=== PATIENT | male | born 1975 | race Caucasian/White ===

== ENCOUNTER 2023-12-17 09:56 | Emergency (ER) | payer OTHER, SELFPAY ==
[2023-12-17 10:17] VITALS: BP 158/98; PULSE 94; RESP 22; TEMP 36.6; O2SAT 99; BMI 25.8
--- NOTE | 2023-12-17 11:01 | US_ITS ---
Patient: MARY SÁNCHEZ Facility:?[facility] R[facility] Patient ID:?[id number] Site Patient ID:?[id number]. Site :?[id number] Study:?US-Testicle Bilateral -12/17/2023 11:57:54 AM Ordering Physician:?ER PROVIDER Final Report: INDICATION: Testicular swelling, not otherwise described. COMPARISON: None. TECHNIQUE: Grayscale and spectral Doppler ultrasound of the scrotum. FINDINGS: Right Testicle: No normal-appearing right testicle is demonstrated. Instead, a heterogeneous solid mass replaces the right testicle. This is considered to represent testicular carcinoma (most likely seminoma) until proven otherwise. This mass measures 6.7 x 5 cm in transverse and AP dimensions, respectively. Color and Spectral Doppler blood flow: Color Doppler and intralesional systemic arterial low resistance spectral waveforms are demonstrated within the lesion. Right Epididymis: Unseen. Varicocele: Absent. Hydrocele: Present. Left Testicle: Size: 3.4 x 2.3 x 4.6cm. Echotexture: Testicular microlithiasis is noted. Color and Spectral Doppler blood flow: Color Doppler and arterial spectral Doppler intratesticular blood flow is documented. Left Epididymis: Unremarkable. Varicocele: Absent. Hydrocele: Absent. Soft tissues: Unremarkable. IMPRESSION: 1. The right testicle is replaced by a heterogeneous solid mass which is considered to represent testicular carcinoma until proven otherwise. Urology referral is recommended. 2. Left testicular microlithiasis. 3. Large right hydrocele. Dictated by Konstantin Kuo MD @ 12/17/2023 12:10:47 PM ----- ADDENDUM ----- ADDENDUM: Report received by Dr. Cody at 12:12 p.m. PROFESSOR OF MEDICINE. Dictated by Konstantin Kuo MD @ Dec 17 2023 12:23PM Signed by:?Konstantin Kuo MD @12/17/2023 12:10:47 PM (Electronic Signature)
[2023-12-17 11:36] LABS: Appearance Urine Clear (Clear); Bilirubin Urine Negative (Negative); Blood Urine 2+ (Negative); Color Urine Yellow (Yellow); Glucose Urine Negative (Negative); Ketones Urine Negative (Negative); Leukocyte Esterase Urine Negative (Negative); Nitrite Urine Negative (Negative); Protein Urine Negative (Negative); Urobilinogen Urine 0.2 (0.2-1.0)
[2023-12-17 11:58] LABS: RBC Urine 0-2 (0-2)
--- NOTE | 2023-12-17 12:03 | ED.GENADULT ---
HPI - General Adult General Date Seen: 12/17/23 Chief complaint: Urogenital Problems, Male Stated complaint: right testicle swelling,lower back pain Time Seen by Provider: 12/17/23 12:00 History of Present Illness HPI narrative: 48-year-old male with a past medical history of tobacco use, presenting to the ER today because he noticed that his right testicle is swollen to the size of a ?tennis ball?. He is also having pain in his back. He told his triage nurse that He he noticed that his testicle swollen about 3 weeks ago. His back pain began about 1 week ago, last Saturday. However, he tells me that he probably 1st noticed that his right testicle was swollen about 3 months ago. It has been progressing for the past week or 2. It has actually become painful overnight last night. It is a throbbing achiness. No left testicular swelling or pain. No rectal pain. He endorses urinary frequency and small bone urine but no dysuria, no urgency. No hematuria. Normal odorous urine. He also has a history of chronic low back pain and it has been flaring for the past week or so with pain in his lower lumbar spine into both of his buttocks. He is not having any anterior abdominal pain. No fevers. No chills. No nausea or vomiting. He has a history of rheumatoid arthritis. He is on prednisone, methotrexate, Rinvoq. He is on prophylactic Bactrim. He has a vitreo retinal surgeon in [facility]. He apparently saw him last week and had ?some lab work that was off? but does not know what labs were abnormal. He is apparently due to have some follow-up. It sounds like he did not mention his swollen testicle to his vitreo retinal surgeon, so as far as I can tell no workup was done for . His testicle. He also says he takes varying doses of prednisone every day. He says his head vitreo retinal surgeon is someone [facility], Dr. Muniz. He apparently had of checkup with her last week and some his blood tests were abnormal. He is not sure which ones. Use postop follow-up and get extra labs. We were able to fax the patient's rheumatology clinic and they sent us a copy of some labs from 12/10/2023 CRP 0.58 Albumin 4.1 AST 26 ALT 25 Creatinine 0 point GFR 94.9 ESR 7 Platelet counth 621h Hemoglobin 13.2 Neutrophil count 11,840 Basophil count 0 Eosinophil count 160 Lymphocyte count 2240 Metamyelocyte count 160 Monocyte 1280 Myelocyte count 320 He also has history of olecranon bursitis in his right elbow for years that has never healed. Previous cultures grew 2 strains of staff, he says. He says he mostly comes to for healthcare here to [place]. However we do not have any visits for him in our medical record since June 2019. It looks like he was hospitalized in June 2019 for left knee cellulitis. According to discharge summary from 2019- While in the hospital he was treated for antibiotics. He had chest nodules and was supposed to have had a follow-up chest x-ray in 3 months. He had ventricular septal hypertrophy and needed to have a follow-up with Cardiology to workup for hypertrophic cardiomyopathy. He also has a dilated aortic sinus with a max diameter 3.9 cm. He also had a new heart murmur with suspicion for a LV outflow tract and myxomatous mitral valve with regurg. Echocardiogram showed EF of 74%. Normal LV size. Moderately increased LV wall thickness. 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 Aortic sinus is dilated with maximum diameter 3.9 cm. Related Data Previous Rx's Medication Instructions Recorded hydrocodone 5 mg-acetaminophen 325 1 tab PO Q6H PRN pain #10 tabs 12/17/23 mg tablet Allergies Allergy/AdvReac Type Severity Reaction Status Date / Time No Known Drug Allergies Allergy Verified 12/17/23 13:39 PFSH PFS Social History Smoking Status: Current every day smoker What tobacco products do you use: cigarettes Smoking packs per day: 20 Smoking cigarettes per day: 400.0 Do you use any of these nicotine containing products: None Second hand tobacco smoke exposure: Yes How often do you have a drink containing alcohol: monthly or less How many standard drinks containing alcohol do you have on a typical day: 1 or 2 How often do you have six or more drinks on one occasion: Never AUDIT-C Alcohol total score: 1 Non-prescribed substance use: marijuana (any form) Non-prescribed substance use details: smokes marijuana daily. service: No Exam Narrative: Exam Narrative: Constitutional: Appears well-developed and well-nourished. Alert. Awake somewhat drowsy. Overall he is conversant but seems to be slurring his speech. I encountered him lying on his left side on his hospital bed. He rolled over while we were talking and fell out of the bed. He landed on his hands and knees. He suffered a small scrape to his left elbow. No other injuries. He was able to get himself up. He declined any assistance. HENT: Head: Atraumatic. Nose: Nose normal. Mouth/Throat: Oral mucosa is clear and moist. no trismus. Pharynx normal. Tonsils symmetric. No tonsillar enlargement, erythema, or exudate. Eyes: Conjunctivae normal. EOM normal. Pupils equal, round, and reactive to light. No scleral icterus. Neck: Normal range of motion. Neck supple. No tracheal deviation present. Cardiovascular: Normal rate, regular rhythm. No gallop. No friction rub. No murmur heard. Symmetric radial artery pulses Pulmonary/Chest: Effort normal. No stridor. No respiratory distress. No wheezes. No rales. No rhonchi . No tenderness. Abdominal: Soft. Bowel sounds normal. No distension. No mass. No tenderness. No rebound. No guarding. : Normal external penis. Circumcised. Penis normal. No inguinal masses. No inguinal adenopathy. Left testicle normal. The patient has marked swelling and enlargement of the right testicle/right hemiscrotum. Very minimal erythema of the skin. No definite warmth or induration. No palpable fluctuance or abscess. Perineum normal. Right testicle palpates enlarged but is not really tender. Musculoskeletal: Endorses low back pain across the lower lumbar spine and upper pelvis. No bony crepitus. No step-off. No rash. RUE: Normal range of motion. No tenderness. No deformity LUE: Normal range of motion. No tenderness. No deformity RLE: Normal range of motion. No edema. No tenderness. No deformity LLE: Normal range of motion. No edema. No tenderness. No deformity Lymph: No inguinal adenopathy. Neurological: Alert and oriented to person, place, and time. Normal strength. CN II-VII intact. No sensory deficit. GCS eye subscore is 4. GCS verbal subscore is 5. GCS motor subscore is 6. Normal coordination Skin: Skin is warm and dry. No rash noted. No pallor. Normal capillary refill. Psychiatric: Normal mood. Normal affect. Const: Vital Signs, click to edit/add: Vital Signs - 24 hr 12/17/23 10:17 12/17/23 12:40 12/17/23 13:44 Temperature 97.8 F Pulse Rate [Pulse Oximeter] 94 80 83 Respiratory Rate 22 20 20 Blood Pressure [Ri ght Upper Arm] 158/98 H 134/95 H 151/115 H Pulse Oximetry 99 96 96 Oxygen Delivery Me thod Room Air Room Air Room Air Course Course ED Course: Recheck-updated patient about ultrasound and CT findings. He is sitting up in the chair next to his bed. He is more conversant now in speech is clear. Unclear why he was drowsy and slurred initially. Concern is for possible substance intoxication, which is cleared well he is here in the ER. At this point mental status is normal Reevaluation(s) Reevaluation #1: Discussed with the patient has rheumatology clinic. They will fax labs Reevaluation #2: Discussed with [place] [facility]. We were able to get this patient the next available appointment on December 24 at 4:[address] Howell in the [facility]. Reevaluation #3: Updated patient is rheumatology clinic about findings. they request that we fax results from today's ER visit-patient agrees. Fax provided Vital Signs Vital signs: Initial Vital Signs Temperature 97.8 F 12/17/23 10:17 Temperature Source Temporal Artery Scan 12/17/23 10:17 Pulse Rate 94 12/17/23 10:17 Pulse Rhythm Regular 12/17/23 10:17 Respiratory Rate 22 12/17/23 10:17 Blood Pressure 158/98 H 12/17/23 10:17 Blood Pressure Mean 118 H 12/17/23 10:17 Blood Pressure Position Sitting 12/17/23 10:17 Pulse Oximetry 99 12/17/23 10:17 Oxygen Delivery Method Room Air 12/17/23 10:17 Vital Signs Temperature 97.8 F 12/17/23 10:17 Pulse Rate 94 12/17/23 10:17 Respiratory Rate 22 12/17/23 10:17 Blood Pressure 158/98 H 12/17/23 10:17 Pulse Oximetry 99 12/17/23 10:17 Oxygen Delivery Method Room Air 12/17/23 10:17 Temperature 97.8 F 12/17/23 10:17 Pulse Rate 83 12/17/23 13:44 Respiratory Rate 20 12/17/23 13:44 Blood Pressure 151/115 H 12/17/23 13:44 Pulse Oximetry 96 12/17/23 13:44 Oxygen Delivery Method Room Air 12/17/23 13:44 Medical Decision Making MDM Narrative Medical decision making narrative: 48-year-old gentleman with a history of rheumatoid arthritis on prednisone, methotrexate and or revoke presenting to the ER today with a couple of months of right testicular swelling now with right testicular pain today. Differential for the testicular pain was broad including torsion, epididymitis, orchitis, UTI, scrotal cellulitis, Dawna's gangrene, kidney stone, among others. Exam revealed a swollen but nontender right testicle. Scrotal ultrasound confirms a present blood flow but a sign that the right testicle is been split replaced by a mass. This is very concerning for testicular cancer. Serum hCG is negative. Serum LDH is elevated at 460. Were not able to measures serum alpha fetoprotein here in the ER in [place]. With his low back pain also consider kidney stone, lumbar spine pathology. We obtained CT scan abdomen pelvis to evaluate. We also included CT chest to look for possible signs of metastasis from possible testicular tumor. Fortunately CT chest 7 pelvis shows no acute masses or lymphadenopathy. No sign of kidney stone, acute lumbar spine or pelvic compression fracture. He request analgesia. Prescription for pain meds provided With his low back pain suspect this is probably musculoskeletal. No evidence for lumbar radiculopathy or cauda equina syndrome based on neuro exam at this time We were able to go make referral to Urology for further evaluation and treatment of his testicular tumor. We were able to get him the next available appointment with [facility]. This will be with Dr. Howell in the [place] office on SaturdayDecember 24 at 4:00 p.m.. Patient's vitreo retinal surgeon is updated. He will still need to follow-up for his other outpatient labs, as ordered by his processor helper Discussed the patient's diagnosis in detail with him. Questions were answered to his satisfaction. He is eager for discharge, but agrees to wait so we can schedule is urology follow-up for him and provide him with digital copies of his imaging. Unfortunately, due to technical problems, There was a delay in getting his digital copy of his CT and ultrasound. He did not want to wait for at so left without copies of his imaging Lab Data Labs: Lab Results 12/17/23 12/17/23 12/17/23 Range/Units 11:10 12:38 13:25 WBC 12.80 H (4.50-11.00) K/uL RBC 4.14 L (4.30-5.90) m/uL Hgb 12.0 L (13.5-17.5) gm/dL Hct 38.5 (37.0-53.0) % MCV 93 (80-100) fL MCH 29 (26-34) pg MCHC 31 L (32-36) gm/dL RDW Coeff of Loren 19.1 H (11.5-15.5) % Plt Count 492 H (140-440) K/uL Neut % (Auto) 76.8 H (42.0-72.0) % Lymph % (Auto) 14.8 L (20-44) % [place] % (Auto) 6.6 (0.0-11.0) % Eos % (Auto) 1.0 (0.0-7.0) % Baso % (Auto) 0.3 (0.0-3.0) % Neut # (Auto) 9.80 H (1.7-7.0) K/uL Lymph # (Auto) 1.90 (0.90-2.90) K/uL [place] # (Auto) 0.80 (0.00-0.90) K/UL Eos # (Auto) 0.10 (0.00-0.50) K/uL Baso # (Auto) 0.00 (0.00-0.30) K/uL Abs Immat Gran (auto) 0.10 (0.00-0.30) K/uL Imm/Tot Granulo (auto) 0.5 % Sodium 138 (135-149) mmol/L Potassium 3.2 L (3.6-5.1) mmol/L Chloride 108 (96-114) mmol/L Carbon Dioxide 28 (20-32) mmol/L Anion Gap 2 L (7-15) mEq/L BUN 14 (7-30) mg/dL Creatinine 0.4 L (0.5-1.5) mg/dL Estimated Creat Clear 242.50 Estimated GFR 133 ml/min Glucose 86 (60-115) mg/dL Calcium 8.5 (8.4-10.6) mg/dL Total Bilirubin 0.2 (0.1-1.5) mg/dL AST 26 (12-35) U/L ALT 20 (4-50) U/L Alkaline Phosphatase 114 (40-150) U/L Lactate Dehydrogenase 464 H (120-246) U/L Total Protein 6.4 (6.0-8.3) g/dL Albumin 3.8 (3.3-5.0) g/dL HCG, Quant < 2.39 (0-5.00) mIU/mL Urine Color Yellow (Yellow) Urine Appearance Clear (Clear) Urine pH 7.0 (5.0-8.5) Ur Specific [place] 1.020 (1.000-1.030) Urine Protein Negative (Negative) Urine Glucose (UA) Negative (Negative) Urine Ketones Negative (Negative) Urine Blood 2+ A (Negative) Urine Nitrite Negative (Negative) Urine Bilirubin Negative (Negative) Urine Urobilinogen 0.2 (0.2-1.0) Ur Leukocyte Esterase Negative (Negative) Urine RBC 0-2 (0-2) Urine WBC 2-5 (0-5) Ur Squamous Epith Cells None (None-Few) Urine Bacteria None (None) Imaging Data US Scrotum: Attestation: I have reviewed the pertinent imaging results. Radiologist's impression: IMPRESSION: 1. The right testicle is replaced by a heterogeneous solid mass which is considered to represent testicular carcinoma until proven otherwise. Urology referral is recommended. 2. Left testicular microlithiasis. 3. Large right hydrocele. CT Chest/Ab/Pelvis: Attestation: I have reviewed the pertinent imaging results. Radiologist's impression: IMPRESSION: 1. Right testicular enlargement with large right hydrocele. Please see testicular ultrasound from earlier today for additional comments. 2. No enlarged lymph nodes with small subcentimeter retroperitoneal lymph nodes noted. 3. Old bilateral rib fractures with old appearing L2 compression fracture. Prominent degenerative disc disease lumbar spine. 4. Moderate colonic diverticulosis. 5. Old granulomatous disease with indeterminate pulmonary nodule in the right upper lobe measuring 3 millimeters. 6. Panlobular emphysema. Discharge Plan Discharge Clinical Impression: Testicular neoplasm Patient Disposition: Home, Self-Care Condition: Stable Instructions: Testicular Cancer (DC) Additional Instructions: As we discussed, please come back to the ER right away if you have any problems especially worsening pain, high fever, worsening weakness, numbness or paralysis of your legs, or any other problems. We have been able to schedule a follow-up appointment for you. You have an appointment with [place] [facility] SaturdayDecember 24 at 3:[address] Howell [facility] [address], [place], [address] [address] Please bring copies of your lab work, digital copies of your ultrasound and CT with you to your appointment. Please follow-up with your vitreo retinal surgeon within 1-2 weeks to follow-up on your lab tests. Prescriptions: New hydrocodone-acetaminophen 5-325 mg tablet 1 tab PO Q6H PRN (Reason: pain) Qty: 10 0RF Follow Up/Referrals: Provider,Not a Local [Primary Care Provider] - Stand Alone Forms: [email or web address] Info Instructions
--- NOTE | 2023-12-17 12:38 | CT_ITS ---
Patient: MARY SÁNCHEZ Facility:?[facility] RIS Patient ID:?[id number] Site Patient ID:?[id number]. Site :?[id number] Study:?CT-Chest/Abd/Pelvis 93CC ISOVUE 370-12/17/2023 1:29:24 PM Ordering Physician:?DR. JUÁREZ Final Report: INDICATION: Cough, back pain, nodules and testicular mass. TECHNIQUE: CT chest, abdomen and pelvis acquired with 93 cc Isovue 370 intravenous contrast. COMPARISON: None. FINDINGS: CHEST: Cardiovascular structures: Mild atherosclerotic calcification. No thoracic aortic aneurysm. No pericardial effusion. Mediastinum and kate: Calcified left hilar lymph nodes. Lungs and pleura: No pleural effusion or pneumothorax. Calcified granulomata within the left lung. Mild panlobular emphysema. Indeterminate pulmonary nodule right upper lobe measuring 3 millimeters (3, 44). Chest wall and axilla: No mass or adenopathy. Bones: Old right 3rd and 4th rib fractures. Old left 3rd through 11th rib fractures. ABDOMEN AND PELVIS: Liver: Calcifications within the liver consistent with old granulomatous disease. Gallbladder and bile ducts: Unremarkable. Pancreas: Unremarkable. Spleen: Calcification in the spleen consistent with old granulomatous disease. Adrenal glands: Unremarkable. Kidneys: Density in the collecting systems of the lower pole of the kidneys which can represent early contrast enhancement versus nonobstructing stones. GI tract: No dilated loops of large or small intestine with a moderate to large amount of stool within the colon. Moderate colonic diverticulosis. Normal appendix. Vascular structures: Atherosclerosis without abdominal aortic aneurysm. Lymph nodes: Subcentimeter retroperitoneal lymph nodes. Miscellaneous: Unremarkable. No free air or significant free fluid. Pelvic Organs: Bladder unremarkable. Prominent enlargement of the right testicle with large right hydrocele. Bones: Diffuse degenerative disc disease lumbar spine with rightward subluxation of L3 on 4. Old appearing compression fracture L2. IMPRESSION: 1. Right testicular enlargement with large right hydrocele. Please see testicular ultrasound from earlier today for additional comments. 2. No enlarged lymph nodes with small subcentimeter retroperitoneal lymph nodes noted. 3. Old bilateral rib fractures with old appearing L2 compression fracture. Prominent degenerative disc disease lumbar spine. 4. Moderate colonic diverticulosis. 5. Old granulomatous disease with indeterminate pulmonary nodule in the right upper lobe measuring 3 millimeters. 6. Panlobular emphysema. Please note that all CT scans at this facility use dose modulation, iterative reconstruction, and/or weight-based dosing when appropriate to reduce radiation dose to as low as reasonably achievable. Dictated by Magan Calzada MD @ 12/17/2023 1:52:28 PM Signed by:?Magan Calzada MD @12/17/2023 1:52:28 PM (Electronic Signature)
[2023-12-17 12:40] VITALS: BP 134/95; PULSE 80; RESP 20; O2SAT 96
[2023-12-17 13:07] LABS: Basophils Percent Auto 0.3 % (0.0-3.0); Hematocrit 38.5 % (37.0-53.0); Immature Granulocytes Pct Auto 0.5 %; Lymphocytes Percent Auto 14.8 % (20-44); Mean Corpuscular HGB Conc 31 gm/dL (32-36); Mean Corpuscular Hemoglobin 29 pg (26-34); Mean Corpuscular Volume 93 fL (80-100); Monocytes Percent Auto 6.6 % (0.0-11.0); Neutrophils Percent Auto 76.8 % (42.0-72.0); Platelet Count* 492 K/uL (140-440); RDW Coefficient of Variation % 19.1 % (11.5-15.5); Red Blood Count 4.14 m/uL (4.30-5.90)
[2023-12-17 13:24] LABS: Albumin* 3.8 g/dL (3.3-5.0); Chloride* 108 mmol/L (96-114)
[2023-12-17 13:25] LABS: Potassium* 3.2 mmol/L (3.6-5.1); Sodium* 138 mmol/L (135-149)
[2023-12-17 13:27] LABS: Alkaline Phosphatase* 114 U/L (40-150); Anion Gap 2 mEq/L (7-15); Aspartate Amino Transferase* 26 U/L (12-35); Bilirubin Total* 0.2 mg/dL (0.1-1.5); Carbon Dioxide* 28 mmol/L (20-32); Creatinine* 0.4 mg/dL (0.5-1.5); Estimated Glomerular Filt Rate 133 ml/min; Total Protein* 6.4 g/dL (6.0-8.3)
[2023-12-17 13:28] LABS: Alanine Aminotransferase* 20 U/L (4-50); Blood Urea Nitrogen* 14 mg/dL (7-30); Calcium* 8.5 mg/dL (8.4-10.6); Glucose* 86 mg/dL (60-115); Lactate Dehydrogenase* 464 U/L (120-246)
[2023-12-17 13:33] LABS: Slide Review Reflex No
[2023-12-17 13:44] VITALS: BP 151/115; PULSE 83; RESP 20; O2SAT 96
[2023-12-17 13:53] LABS: HCG Quantitative* < 2.39 mIU/mL (0-5.00)
== END 2023-12-17 15:39 | disposition home or self-care (01) ==
PROVIDERS: Family Medicine; Emergency Provider Emergency Medicine
DX: D40.11 Neoplasm of uncertain behavior of right testis (principal); R10.2 Pelvic and perineal pain
CPT/HCPCS: 36415; 71260; 74177; 76870; 80053; 81001; 82105; 83615; 84702; 85025; 93976; 99284; Q9967

== ENCOUNTER 2024-06-09 08:38 | Outpatient (CLI) | payer OTHER, SELFPAY ==
--- OUTSIDE RECORDS SUMMARY | 2024-06-09 08:41 | XMS_ITS | Continuity of Care Document ---
Author Organization [facility] Address [address] [place] [address] Phone Care Team Providers Care Silver Cleaner Name Role Phone Carmen Ballard DNP Unavailable Unavailable Medications Medication Instructions Dosage Effective Dates (start - stop) Status Comments methotrexate sodium 2.5 mg tablet take 1 tablet by oral route every week 2.5 MG - Active prednisone 5 mg tablet take 1 tablet by oral route every day 5 MG - Active Rinvoq 15 mg tablet,extended release take 1 tablet by oral route every day 15 MG - Active BACTRIM (unknown strength) take 2 tablet by oral route every 12 hours Not Available - Active Procedures Procedure Date OFFICE/OUTPATIENT VISIT, [facility] Advance Directives Directive Yes / No Effective Date File Name No Information Encounters Encounter Description Practice Location Reason(s) For Visit Diagnoses Date Provider Providers Copied on Encounter OFFICE/OUTPA TIENT VISIT, [facility], [address] [place], [id number] , [place] tel:[phone] [facility] Back pain (chief complaint) Chronic pain syndromeSpondylo sis without myelopathy or radiculopathy, lumbar regionSpondyloli sthesis, cervical regionRheumatoid arthritis 3 Nellie Morales. [address], [place], [id number] , [place]. tel:[phone] Referring Provider: Yisel Antoine, [facility] [address], [place], [address]. tel:[phone] Family History Family Member Type Diagnosis Age At Onset No Information Payers Payer name Insurance type Covered green party ID Atif waggoner(s) Medicare MB [id number] [facility] [id number] Social History Type Description Quantity Date Captured Comments Alcohol Use Details 2-3 drinks monthly Caffeine Use Details Unknown Tobacco Use Status Heavy cigarette smok er (20-39 cigs/day) Smoking Status Heavy tobacco smoker Smoking Tobacco Use Details Cigarette: No Details Available Cigarette: 1 Packs per day Sex Male Vital Signs Date / Time: Height Weight BMI Pulse Rate Blood Pressure Temperature Respiratory Rate Body Surface Area Head Circumference Head Circ. Percentile Wt./Phong. Percentile BMI percentile Pulse Ox Inhaled Ox 9:35 AM 70.00 in 83.007 kg (183.00 lbs) 26.2 6 kg/m eter (2) Chief Complaint And Reason For Visit From encounter dated 10/23/2022 09:40'. Back pain (chief complaint). Description: Severity level is 7. Location of pain is lower back and neck. Symptoms are aggravated by bending and movement. Symptoms are relieved by pain meds/drugs. Reason For Referral Reason For Referral No Information Plan Of Treatment Date Type Action Status Goal Tobacco Use. Due on due Goal Weight. Due on d ue Goal Medication Reconciliation. D ue on due Goal PHQ-9. Due on du e Goal Update Social History. Due o n due Goal Unhealthy drug use screening . Due on due Goal Height. Due on d ue Goal Review Allergy List. Due on due Goal Lipid panel. Due on 023 due Goal Hepatitis C screening. Due o n due History Of Present Illness Encounter Date Complaint History Of Prese nt Illness Back pain Severity level i s 7. Location of pain is lower back and neck. Symptoms are aggravated by bending and movement. Symptoms are relieved by pain meds/drugs. Comments: John is a 47 y/o man here for initial consult regarding chronic neck and back pain, as well as pain r/t RA. Patient is referred by [facility]. Hx of two cervical fusions and spinal surgery - records not available for review. Reports being dx'd with RA when he was 13 y/o. Pain level averages 7/10. C/o low back pain and pain r/t RA, primarily in his hands and feet.For pain management, patient has undergone a cortisone injection in his wrist - years ago, and has tried Amitriptyline, Ibuprofen, Prednisone, and Tramadol.Currently managed on Prednisone 5mg.John is interested in pain management through [facility]. No other concerns today. Functional Status Date Functional Assessmen t No Information Instructions Date Instruction Additional Infor mation No Information Assessments Type Assessment Date assessment Chronic pain syndrome 3 assessment Spondylosis without myelopathy o r radiculopathy, lumbar region assessment Spondylolisthesis, cervical zuleika on impression Chronic low back jodi n. Hx of spinal surgery.MRI Lumbar Spine from 08/10/22 through [facility]:CONCLUSION: Multilevel disc degeneration with a transitional S1 vertebra, a hypoplastic S1-2 disc and significant findings as follows:1. Moderate-sized 4-6 mm broad-based central posterior disc herniation at L5-S1 with moderate narrowing of the dural sac.2. 4 mm right paracentral disc protrusion at L4-5 with moderate narrowing of the dural sac.3. 4 mm broad-based central posterior disc protrusion at L3-4 with a 4 mm left rotatory spondylolisthesis, moderate narrowing of the central canal.4. Moderate narrowing of the dural sac at L2-3.5. Foraminal stenosis, moderately severe on the left at L3-4 with left L3 neural impingement, and moderate at L5-S1 and L4-5.XR Lumbar Spine from 08/10/22 through [facility]:CONCLUSION:1. Multilevel lumbar disc degeneration.2. Old mild to moderate anterior wedge-shaped compression fracture at L3. This may be related to patient's long-term steroid use.3. Transitional S1 vertebrae with lumbarization on the right and a hypoplastic S1-2 disc.4. 21 degree upper lumbar curve to the right with a 2.4 cm pelvic tilt. impression Chronic neck pain. H x of two cervical fusions.MRI Cervical Spine from 08/10/22 through [facility]:CONCLUSION:1. Old solid ACDFs at C5-6 and C4-5 with chronic myelomalacia on the right at C6.2. Advanced supra-adjacent C3-4 disc degeneration with marked narrowing of the central canal, moderate broad-based ventral cord compression and early cord edema or myelomalacia on the left.3. Moderate right and severe left foraminal stenosis at C3-4.4. Interbody and facet autofusion at C6-7 with a residual 2-3 mm spondylolisthesis.5. Mild to moderate foraminal stenosis at T1-2 and C7-T1 with moderate left facet arthropathy at C7-T1.6. Comparison with 02/23/2015 shows that surgical changes at C4-5 are new, spondylolisthesis and autofusion at C6-7 are new, and degenerative changes have progressed at C7-T1 and C3-4 with severe central and left foraminal stenosis at C3-4 new in the interval. impression This is my first john luation of the patient. Some imaging records available for review. [place] [employer] criminal backgrounds check completed with a 5th degree drug sale of marijuana in 1993, and a DWI in 1999.John is a 47 y/o man here for initial consult regarding chronic neck and back pain, as well as pain r/t RA. Patient is referred by [facility]. Hx of two cervical fusions and a spinal surgery - records not available for review. Reports being dx'd with RA when he was 13 y/o. Pain level averages 7/10. 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 Patient Care Teams Name Effective Dates (start - stop) Status Members No Information
--- OUTSIDE RECORDS SUMMARY | 2024-06-09 08:42 | XMS_ITS | Referral Summary ---
Author Organization [facility] Address [address] [place] [address] Care Team Providers Care Property Custodian Name Role Phone Unavailable Primary Care Provider Unavailabl e Source Comments Patient records contain information from all sites at [facility]. For routine questions regarding patient records, call [phone] during business hours, M-F 8:00 AM - 5:00 PM Central Time. 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
--- OUTSIDE RECORDS SUMMARY | 2024-06-09 08:42 | XMS_ITS | Continuity of Care Document ---
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 Name Role Phone Yisel Sinclair DO Unavailable Unavailab le Allergies, Adverse Reactions, Alerts Substance Reaction Status Criticality No Known Allergies Active No Inform ation Medications Medication Instructions Dosage Effective Dates (start - stop) Status Comments Methotrexate Sodium 2.5 MG Oral Tablet TAKE 8 TABLETS BY MOUTH ONCE A WEEK 8 tablet - Active Sulfamethoxazole- Trimethoprim 800-160 MG Oral Tablet TAKE 1 TABLET BY MOUTH THREE TIMES A WEEK - Active RINVOQ 15 MG TABLET EXTENDED RELEASE 24 HOUR TAKE 1 TABLET BY MOUTH ONCE DAILY - Active prednisone 5 mg tablet TAKE 6 TABLETS BY MOUTH ONCE DAILY - Active Pt lost previou s prescription Aquaphor Healing 41 % topical ointment apply as needed - Active 14 oz jar lisinopril 20 mg tablet take 1 tablet by oral route every day 20 MG - Active Percocet 5 mg-325 mg tablet as needed - Active Tylenol Extra Strength 500 mg tablet take 4 tablet by oral route every day 2000 MG - Active Methotrexate Sodium 2.5 MG Oral Tablet TAKE 8 TABLETS BY MOUTH ONCE A WEEK 8 tablet - No Longer Active Procedures Procedure Date Office/Outpatient Visit, Est Routine Venipuncture Specimen Handling Office/Outpatient Visit, Est Routine Venipuncture Specimen Handling Rbc Sed Rate, Automated Assay Of Serum Albumin Assay Of Creatinine Transferase (Ast) (Sgot) Alanine Amino (Alt) (Sgpt) CReactive Protein XRay Exam Of Hand 3v Office/Outpatient Visit, Est Routine Venipuncture Rbc Sed Rate, Automated Assay Of Serum Albumin Assay Of Creatinine Transferase (Ast) (Sgot) Alanine Amino (Alt) (Sgpt) CReactive Protein Complete Cbc WAuto Diff Wbc Routine Venipuncture Specimen Handling Rbc Sed Rate, Automated Assay Of Serum Albumin Assay Of Creatinine Transferase (Ast) (Sgot) Alanine Amino (Alt) (Sgpt) CReactive Protein Office/Outpatient Visit, Est Routine Venipuncture Rbc Sed Rate, Automated Assay Of Serum Albumin Assay Of Creatinine Transferase (Ast) (Sgot) Alanine Amino (Alt) (Sgpt) CReactive Protein Complete Cbc WAuto Diff Wbc Office/Outpatient Visit, Est Routine Venipuncture Rbc Sed Rate, Nonautomated Assay Of Serum Albumin Assay Of Creatinine Transferase (Ast) (Sgot) Alanine Amino (Alt) (Sgpt) CReactive Protein Complete Cbc WAuto Diff Wbc Office/Outpatient Visit, Est Routine Venipuncture Rbc Sed Rate, Nonautomated Assay Of Serum Albumin Assay Of Creatinine Transferase (Ast) (Sgot) Alanine Amino (Alt) (Sgpt) CReactive Protein Complete Cbc WAuto Diff Wbc Office/Outpatient Visit, Est Routine Venipuncture Rbc Sed Rate, Nonautomated Assay Of Serum Albumin Assay Of Creatinine Transferase (Ast) (Sgot) Alanine Amino (Alt) (Sgpt) CReactive Protein Complete Cbc WAuto Diff Wbc Office/Outpatient Visit, Est Routine Venipuncture CReactive Protein Rbc Sed Rate, Nonautomated Assay Of Serum Albumin Assay Of Creatinine Transferase (Ast) (Sgot) Alanine Amino (Alt) (Sgpt) Complete Cbc WAuto Diff Wbc Office/Outpatient Visit, Est Routine Venipuncture Rbc Sed Rate, Nonautomated Assay Of Serum Albumin Assay Of Creatinine Transferase (Ast) (Sgot) Alanine Amino (Alt) (Sgpt) CReactive Protein Complete Cbc WAuto Diff Wbc Office/Outpatient Visit, Est Routine Venipuncture Specimen Handling Rbc Sed Rate, Nonautomated Assay Of Serum Albumin Assay Of Creatinine Transferase (Ast) (Sgot) Alanine Amino (Alt) (Sgpt) CReactive Protein Office/Outpatient Visit, Est Routine Venipuncture Rbc Sed Rate, Nonautomated Assay Of Serum Albumin Assay Of Ck (Cpk) Assay Of Creatinine Assay Alkaline Phosphatase Transferase (Ast) (Sgot) Assay Of Blood/Uric Acid CReactive Protein Complete Cbc WAuto Diff Wbc Office/Outpatient Visit, Est Routine Venipuncture Rbc Sed Rate, Nonautomated Assay Of Serum Albumin Assay Of Ck (Cpk) Assay Of Creatinine Assay Alkaline Phosphatase Transferase (Ast) (Sgot) Assay Of Blood/Uric Acid CReactive Protein Complete Cbc WAuto Diff Wbc Office/Outpatient Visit, Est Routine Venipuncture Specimen Handling Rbc Sed Rate, Nonautomated Assay Of Serum Albumin Assay Of Ck (Cpk) Assay Of Creatinine Assay Alkaline Phosphatase Transferase (Ast) (Sgot) Assay Of Blood/Uric Acid CReactive Protein Tb Test, Cell Immun Measure Complete Cbc WAuto Diff Wbc Office/Outpatient Visit, Est Routine Venipuncture Rbc Sed Rate, Nonautomated Assay Of Serum Albumin Assay Of Ck (Cpk) Assay Of Creatinine Assay Alkaline Phosphatase Transferase (Ast) (Sgot) Assay Of Blood/Uric Acid CReactive Protein Complete Cbc WAuto Diff Wbc Office/Outpatient Visit, Est Office/Outpatient Visit, Est Routine Venipuncture Rbc Sed Rate, Nonautomated Assay Of Serum Albumin Assay Of Ck (Cpk) Assay Of Creatinine Assay Alkaline Phosphatase Transferase (Ast) (Sgot) Assay Of Blood/Uric Acid CReactive Protein Complete Cbc WAuto Diff Wbc Office/Outpatient Visit, Est Routine Venipuncture Specimen Handling Rbc Sed Rate, Nonautomated Assay Of Serum Albumin Assay Of Ck (Cpk) Assay Of Creatinine Assay Alkaline Phosphatase Transferase (Ast) (Sgot) Assay Of Blood/Uric Acid CReactive Protein Tb Test, Cell Immun Measure Office/Outpatient Visit, Est Routine Venipuncture Rbc Sed Rate, Nonautomated Assay Of Serum Albumin Assay Of Creatinine Transferase (Ast) (Sgot) Alanine Amino (Alt) (Sgpt) CReactive Protein Complete Cbc WAuto Diff Wbc Office/Outpatient Visit, Est Routine Venipuncture Complete Cbc WAuto Diff Wbc Rbc Sed Rate, Nonautomated Assay Of Serum Albumin Assay Of Creatinine Transferase (Ast) (Sgot) Alanine Amino (Alt) (Sgpt) CReactive Protein Office/Outpatient Visit, Est Routine Venipuncture Complete Cbc WAuto Diff Wbc Rbc Sed Rate, Nonautomated CReactive Protein Assay Of Serum Albumin Assay Of Creatinine Transferase (Ast) (Sgot) Alanine Amino (Alt) (Sgpt) Office/Outpatient Visit, Est Routine Venipuncture Complete Cbc WAuto Diff Wbc Rbc Sed Rate, Nonautomated CReactive Protein Assay Of Serum Albumin Assay Of Creatinine Transferase (Ast) (Sgot) Alanine Amino (Alt) (Sgpt) Office/Outpatient Visit, Est Routine Venipuncture Complete Cbc WAuto Diff Wbc Rbc Sed Rate, Nonautomated CReactive Protein Assay Of Serum Albumin Assay Of Creatinine Transferase (Ast) (Sgot) Alanine Amino (Alt) (Sgpt) XRay Exam Of Hand 2v XRay Exam Of Hand 2v X-Ray Exam Of Foot 2v Office/Outpatient Visit, Est X-Ray Exam Of Foot 2v Routine Venipuncture Complete Cbc WAuto Diff Wbc Rbc Sed Rate, Nonautomated CReactive Protein Assay Of Serum Albumin Assay Of Creatinine Transferase (Ast) (Sgot) Alanine Amino (Alt) (Sgpt) Office/Outpatient Visit, Est Routine Venipuncture Specimen Handling Complete Cbc WAuto Diff Wbc Rbc Sed Rate, Nonautomated CReactive Protein Office/Outpatient Visit, Est Routine Venipuncture Complete Cbc WAuto Diff Wbc Rbc Sed Rate, Nonautomated CReactive Protein Assay Of Serum Albumin Assay Of Ck (Cpk) Assay Of Creatinine Assay Alkaline Phosphatase Transferase (Ast) (Sgot) Assay Of Blood/Uric Acid Office/Outpatient Visit, Est Routine Venipuncture Specimen Handling Complete Cbc WAuto Diff Wbc Rbc Sed Rate, Nonautomated CReactive Protein Assay Of Serum Albumin Assay Of Creatinine Transferase (Ast) (Sgot) Alanine Amino (Alt) (Sgpt) Office/Outpatient Visit, Est Routine Venipuncture Specimen Handling Complete Cbc WAuto Diff Wbc Rbc Sed Rate, Nonautomated CReactive Protein Assay Of Serum Albumin Assay Of Creatinine Transferase (Ast) (Sgot) Alanine Amino (Alt) (Sgpt) Office/Outpatient Visit, Est Routine Venipuncture Complete Cbc WAuto Diff Wbc Rbc Sed Rate, Nonautomated CReactive Protein Assay Of Serum Albumin Assay Of Creatinine Transferase (Ast) (Sgot) Alanine Amino (Alt) (Sgpt) Specimen Handling Dxa Bone Density, Axial Office/Outpatient Visit, Est Routine Venipuncture Complete Cbc WAuto Diff Wbc Rbc Sed Rate, Nonautomated CReactive Protein Assay Of Serum Albumin Assay Of Creatinine Transferase (Ast) (Sgot) Alanine Amino (Alt) (Sgpt) Chemo, Iv Infusion, 1 Hr Normal Saline Solution Infus Actemra Tocilizumab Actemra Tocilizumab Chemo, Iv Infusion, 1 Hr Normal Saline Solution Infus Office/Outpatient Visit, Est Routine Venipuncture Complete Cbc WAuto Diff Wbc Rbc Sed Rate, Nonautomated CReactive Protein Assay Of Serum Albumin Assay Of Creatinine Transferase (Ast) (Sgot) Alanine Amino (Alt) (Sgpt) Actemra Tocilizumab Chemo, Iv Infusion, 1 Hr Normal Saline Solution Infus Chemo, Iv Infusion, 1 Hr Normal Saline Solution Infus Actemra Tocilizumab Chemo, Iv Infusion, 1 Hr Normal Saline Solution Infus Actemra Tocilizumab Office/Outpatient Visit, Est Routine Venipuncture Complete Cbc WAuto Diff Wbc Rbc Sed Rate, Nonautomated CReactive Protein Assay Of Serum Albumin Assay Of Creatinine Transferase (Ast) (Sgot) Alanine Amino (Alt) (Sgpt) Chemo, Iv Infusion, 1 Hr Normal Saline Solution Infus Actemra Tocilizumab Actemra Tocilizumab Chemo, Iv Infusion, 1 Hr Normal Saline Solution Infus Routine Venipuncture Complete Cbc WAuto Diff Wbc Specimen Handling Assay Of Serum Albumin Assay Of Ck (Cpk) Assay Of Creatinine Assay Alkaline Phosphatase Transferase (Ast) (Sgot) Assay Of Blood/Uric Acid Office/Outpatient Visit, Est Rituxan Rituximab Chemo, Iv Infusion, 1 Hr Chemo, Iv Infusion, Addl Hr Normal Saline Solution Infus Solumedrol Up To 125mg Tx/Proph/Dg Addl Seq Iv Inf Rituxan Rituximab Chemo, Iv Infusion, 1 Hr Chemo, Iv Infusion, Addl Hr Normal Saline Solution Infus Solumedrol Up To 125mg Ther/Proph/Diag Inj, Iv Push Office/Outpatient Visit, Est Routine Venipuncture CReactive Protein Complete Cbc WAuto Diff Wbc Rbc Sed Rate, Nonautomated Assay Of Serum Albumin Assay Of Creatinine Transferase Ast Sgot Alanine Amino Alt Sgpt Office/Outpatient Visit, Est Routine Venipuncture CReactive Protein Complete Cbc WAuto Diff Wbc Rbc Sed Rate, Nonautomated Assay Of Serum Albumin Assay Of Ck (Cpk) Assay Of Creatinine Assay Alkaline Phosphatase Transferase Ast Sgot Assay Of Blood/Uric Acid Office/Outpatient Visit, Est Rituxan Rituximab Chemo, Iv Infusion, 1 Hr Chemo, Iv Infusion, Addl Hr Normal Saline Solution Infus Solumedrol Up To 125mg Tx/Proph/Dg Addl Seq Iv Inf Rituxan Rituximab Chemo, Iv Infusion, 1 Hr Chemo, Iv Infusion, Addl Hr Normal Saline Solution Infus Solumedrol Up To 125mg Tx/Proph/Dg Addl Seq Iv Inf Office/Outpatient Visit, Est Routine Venipuncture CReactive Protein Complete Cbc WAuto Diff Wbc Rbc Sed Rate, Nonautomated Assay Of Serum Albumin Assay Of Creatinine Transferase Ast Sgot Alanine Amino Alt Sgpt Office/Outpatient Visit, Est Routine Venipuncture CReactive Protein Complete Cbc WAuto Diff Wbc Rbc Sed Rate, Nonautomated Assay Of Serum Albumin Assay Of Creatinine Transferase Ast Sgot Alanine Amino Alt Sgpt Advance Directives Directive Yes / No Effective Date File Name No Information Encounters Encounter Description Practice Location Reason(s) For Visit Diagnoses Date Provider Providers Copied on Encounter [facility] , [address], [place], [address], [place] tel:[phone] [facility] , No Information 4 [facility] Jana Morillo. [address], [place], [address], [place]. [phone] [facility] , [address], [place], [address], [place] tel:[phone] [facility] , No Information 4 [facility] Janachino Morillo. [address], [address], [place], [address], [place]. tel:[phone] Office/Outpa tient Visit, Est [facility] , [address], [place], [address], [place] tel:[phone] [facility] , Other buttermaker helper (current) drug therapyOlecr anon bursitis, right elbowRheumat oid arthritis with rheumatoid factor of multiple sites without organ or systems involvement 4 Sarahi Morillo. [address], [address], [place], [address], [place]. tel:[phone] Referring Provider: Yisel Antoine, [address], [place], [address]. tel:[phone] [facility] , [address], [place], [address], [place] tel:[phone] [facility] , No Information 4 Sarahi Morillo. [address], [address], [place], [address], [place]. tel:[phone] Office/Outpa tient Visit, Est [facility] , [address], [place], [address], [place] tel:[phone] [facility] , Other buttermaker helper (current) drug therapyOlecr anon bursitis, right elbowRheumat oid arthritis with rheumatoid factor of multiple sites without organ or systems involvement Nov- 4 Sarahi Morillo. [address], [address], [place], [address], [place]. tel:[phone] Referring Provider: Yisel Antoine, [address], [place], [address]. tel:[phone] [facility] , [address], [place], [address], [place] tel:[phone] [facility] , No Information 0 4 Sarahi Morillo. [address], [address], [place], [address], [place]. tel:[phone] [facility] , [address], [place], [address], [place] tel:[phone] [facility] , No Information 4 Sarahi Morillo. [address], [address], [place], [address], [place]. tel:[phone] Referring Provider: Yisel Antoine, [address], [place], [address]. tel:[phone] Office/Outpa tient Visit, Est [facility] , [address], [place], [address], [place] tel:[phone] [facility] , Other buttermaker helper (current) drug therapyOlecr anon bursitis, right elbowRheumat oid arthritis with rheumatoid factor of multiple sites without organ or systems involvement 4 Sarahi Morillo. [address], [address], [place], [address], [place]. tel:[phone] Referring Provider: Yisel Antoine, [address], [place], [address]. tel:[phone] [facility] , [address], [place], [address], [place] tel:[phone] [facility] , No Information 3 Sarahi Morillo. [address], [address], [place], [address], [place]. tel:[phone] Referring Provider: Yisel Antoine, [address], [place], [address]. tel:[phone] Office/Outpa tient Visit, Est [facility] , [address], [place], [address], [place] tel:[phone] [facility] , Rheumatoid arthritis with rheumatoid factor of multiple sites without organ or systems involvementO ther buttermaker helper (current) drug therapyOlecr anon bursitis, right elbow 3 Sarahi Morillo. [address], [address], [place], [address], [place]. tel:[phone] Referring Provider: Yisel Antoine, [address], [place], [address]. tel:[phone] Office/Outpa tient Visit, Est [facility] , [address], [place], [address], [place] tel:[phone] [facility] , Rheumatoid arthritis with rheumatoid factor of multiple sites without organ or systems involvementO ther senior living (current) drug therapyOlecr anon bursitis, right elbow 3 Sarahi Morillo. [address], [address], [place], [address], [place]. tel:[phone] Referring Provider: Yisel Antoine, [address], [place], [address]. tel:[phone] Office/Outpa tient Visit, Est [facility] , [address], [place], [address], [place] tel:[phone] [facility] , Rheumatoid arthritis with rheumatoid factor of multiple sites without organ or systems involvementO ther senior living (current) drug therapyOlecr anon bursitis, right elbow 2 Sarahi Morillo. [address], [address], [place], [address], [place]. tel:[phone] Referring Provider: Yisel Antoine, [address], [place], [address]. tel:[phone] Office/Outpa tient Visit, Est [facility] , [address], [place], [address], [place] tel:[phone] [facility] , Rheumatoid arthritis with rheumatoid factor of multiple sites without organ or systems involvementO ther senior living (current) drug therapyOlecr anon bursitis, right elbow 2 Sarahi Morillo. [address], [address], [place], [address], [place]. tel:[phone] Referring Provider: Yisel Antoine, [address], [place], [address]. tel:[phone] Office/Outpa tient Visit, Est [facility] , [address], [place], [address], [place] tel:[phone] [facility] , Rheumatoid arthritis with rheumatoid factor of multiple sites without organ or systems involvementO ther buttermaker helper (current) drug therapyOlecr anon bursitis, right elbow 2 Sarahi Morillo. [address], [address], [place], [address], [place]. tel:[phone] Referring Provider: Yisel Antoine, [address], [place], [address]. tel:[phone] Office/Outpa tient Visit, Est [facility] , [address], [place], [address], [place] tel:[phone] [facility] , Rheumatoid arthritis with rheumatoid factor of multiple sites without organ or systems involvementO ther buttermaker helper (current) drug therapyOlecr anon bursitis, right elbow 2 Sarahi Morillo. [address], [address], [place], [address], [place]. tel:[phone] Referring Provider: Yisel Antoine, [address], [place], [address]. tel:[phone] Office/Outpa tient Visit, Est [facility] , [address], [place], [address], [place] tel:[phone] [facility] , Rheumatoid arthritis with rheumatoid factor of multiple sites without organ or systems involvementO ther buttermaker helper (current) drug therapy 1 Sarahi Morillo. [address], [address], [place], [address], [place]. tel:[phone] Referring Provider: Yiselbjorn Antoine, [address], [place], [address]. tel:[phone] Office/Outpa tient Visit, Est [facility] , [address], [place], [address], [place] tel:[phone] [facility] , RA w/ rheumatoid factor of multiple sites w/o organ involvementO lecranon bursitis, right elbowTherape utic drug monitoringPa in in left ankle 1 Yan Young. [facility] [address], [place], [address], [place]. tel:[phone] Referring Provider: Hector Merrill, [facility] [address], [place], [address]. tel:[phone] Office/Outpa tient Visit, Est [facility] , [address], [place], [address], [place] tel:[phone] [facility] , Nonobstructi ve hypertrophic cardiomyopat hyRA w/ rheumatoid factor of multiple sites w/o organ involvementO lecranon bursitis, right elbowTherape utic drug monitoring 1 Yan Young. [facility] [address], [place], [address], [place]. tel:[phone] Referring Provider: Hector Merrill, [facility] [address], [place], [address]. tel:[phone] Office/Outpa tient Visit, Est [facility] , [address], [place], [address], [place] tel:[phone] [facility] , Nonobstructi ve hypertrophic cardiomyopat hyRA w/ rheumatoid factor of multiple sites w/o organ involvementO lecranon bursitis, right elbowTherape utic drug monitoring 0 1 Yan Young. [facility] [address], [place], [address], [place]. tel:[phone] Referring Provider: Hector Merrill, [facility] [address], [place], [address]. tel:[phone] Office/Outpa tient Visit, Est [facility] , [address], [place], [address], [place] tel:[phone] [facility] , RA w/ rheumatoid factor of multiple sites w/o organ involvementO lecranon bursitis, right elbowTherape utic drug monitoringNo nobstructive hypertrophic cardiomyopat hy Mar- 0 Yan Young. [facility] [address], [place], [address], [place]. tel:[phone] Referring Provider: Hector Merrill, [facility] [address], [place], [address]. tel:[phone] Office/Outpa tient Visit, Est [facility] , [address], [place], [address], [place] tel:[phone] [facility] , RA w/ rheumatoid factor of multiple sites w/o organ involvementT herapeutic drug monitoringOl ecranon bursitis, right elbowHeart murmur 0 Yan Young. [facility] [address], [place], [address], [place]. tel:[phone] Referring Provider: Hector Merrill, [facility] [address], [place], [address]. tel:[phone] Office/Outpa tient Visit, Est [facility] , [address], [place], [address], [place] tel:[phone] [facility] , RA w/ rheumatoid factor of multiple sites w/o organ involvementT herapeutic drug monitoringCe llulitis of left lower limb 9 Yan Young. [facility] [address], [place], [address], [place]. tel:[phone] Referring Provider: Hector Merrill, [facility] [address], [place], [address]. tel:[phone] Office/Outpa tient Visit, Est [facility] , [address], [place], [address], [place] tel:[phone] [facility] , RA w/ rheumatoid factor of multiple sites w/o organ involvementT herapeutic drug monitoring 9 Yan Young. [facility] [address], [place], [address], [place]. tel:[phone] Referring Provider: Hector Merrill, [facility] [address], [place], [address]. tel:[phone] Office/Outpa tient Visit, Est [facility] , [address], [place], [address], [place] tel:[phone] [facility] , RA w/ rheumatoid factor of multiple sites w/o organ involvementS natasha stenosis, lumbosacral regionTherap eutic drug monitoringCa rpal tunnel syndrome of left arm 9 Yan Young. [facility] [address], [place], [address], [place]. tel:[phone] Referring Provider: Hector Merrill, [facility] [address], [place], [address]. tel:[phone] Office/Outpa tient Visit, Est [facility] , [address], [place], [address], [place] tel:[phone] [facility] , RA w/ rheumatoid factor of multiple sites w/o organ involvementT herapeutic drug monitoringSp inal stenosis, lumbosacral regionLesion of ulnar nerve, right upper limb 9 Yan Young. [facility] [address], [place], [address], [place]. tel:[phone] Referring Provider: Hector Merrill, [facility] [address], [place], [address]. tel:[phone] Office/Outpa tient Visit, Est [facility] , [address] [address], [place], [address], [place] tel:[phone] [facility] , RA w/ rheumatoid factor of multiple sites w/o organ involvementT herapeutic drug monitoring 8 Yan Young. [facility] [address], [place], [address], [place]. tel:[phone] Referring Provider: Hector Merrill, [facility] [address], [place], [address]. tel:[phone] Office/Outpa tient Visit, Est [facility] , [address], [place], [address], [place] tel:[phone] [facility] , RA w/ rheumatoid factor of multiple sites w/o organ involvementT herapeutic drug monitoringCo ntact dermatitis 7 Yan Young. [facility] [address], [place], [address], [place]. tel:[phone] Referring Provider: Hector Merrill, [facility] [address], [place], [address]. tel:[phone] [facility] , [address], [place], [address], [place] tel:[phone] [facility] , No Information 7 Yan Young. [facility] [address], [place], [address], [place]. tel:[phone] Referring Provider: Hector Merrill, [facility] [address], [place], [address]. tel:[phone] Office/Outpa tient Visit, Est [facility] , [address], [place], [address], [place] tel:[phone] [facility] , RA w/ rheumatoid factor of multiple sites w/o organ involvementT herapeutic drug monitoring Apr-0 7 Yan Young. [facility] [address], [place], [address], [place]. tel:[phone] Referring Provider: Hector Merrill, [facility] [address], [place], [address]. tel:[phone] Office/Outpa tient Visit, Est [facility] , [address], [place], [address], [place] tel:[phone] [facility] , RA w/ rheumatoid factor of multiple sites w/o organ involvementT herapeutic drug monitoringCu shing's syndrome Oct-0 6-201 6 Yan Young. [facility] [address], [place], [address], [place]. tel:[phone] Referring Provider: Hector Merrill, [facility] [address], [place], [address]. tel:[phone] Office/Outpa tient Visit, Est [facility] , [address], [place], [address], [place] tel:[phone] [facility] , Rheumatoid arthritis (chief complaint) RA w/ rheumatoid factor of multiple sites w/o organ involvementT herapeutic drug monitoringCu shing's syndrome Apr-0 7-201 6 Yan Young. [facility] [address], [place], [address], [place]. tel:[phone] Referring Provider: Hector Merrill, [facility] [address], [place], [address]. tel:[phone] Office/Outpa tient Visit, Est [facility] , [address], [place], [address], [place] tel:[phone] [facility] , Rheumatoid arthritis (chief complaint) RA w/ rheumatoid factor of multiple sites w/o organ involvementT herapeutic drug monitoringCe rvical disc disorder with myelopathy, unspecified cervical region 5 Yan Young. [facility] [address], [place], [address], [place]. tel:[phone] Referring Provider: Hector Merrill, [facility] [address], [place], [address]. tel:[phone] Office/Outpa tient Visit, Est [facility] , [address], [place], [address], [place] tel:[phone] [facility] , Rheumatoid arthritisThe rapeutic Drug MonitoringRh eumatoid nodule 5 Yan Young. [facility] [address], [place], [address], [place]. tel:[phone] Referring Provider: Hector Merrill, [facility] [address], [place], [address]. tel:[phone] Office/Outpa tient Visit, Est [facility] , [address], [place], [address], [place] tel:[phone] [facility] , Rheumatoid Arthritis (chief complaint) Rheumatoid ArthritisThe rapeutic Drug Monitoring 4 Yan Young. [facility] [address], [place], [address], [place]. tel:[phone] Referring Provider: Hector Merrill, [facility] [address], [place], [address]. tel:[phone] Office/Outpa tient Visit, Est [facility] , [address], [place], [address], [place] tel:[phone] [facility] , Rheumatoid Arthritis (chief complaint)Os teoporosis screening (chief complaint) Rheumatoid ArthritisThe rapeutic Drug MonitoringDi sorder of bone and cartilage, unspecified 4 Yan Young. [facility] [address], [place], [address], [place]. tel:[phone] Referring Provider: Hector Merrill, [facility] [address], [place], [address]. tel:[phone] [facility] , [address], [place], [address], [place] tel:[phone] [facility] , No Information 4 Yan Young. [facility] [address], [place], [address], [place]. tel:[phone] Referring Provider: Hector Merrill, [facility] [address], [place], [address]. tel:[phone] Office/Outpa tient Visit, Est [facility] , [address], [place], [address], [place] tel:[phone] [facility] , Rheumatoid Arthritis (chief complaint) Rheumatoid ArthritisThe rapeutic Drug MonitoringSp ecial screening for osteoporosis 4 Yan Young. [facility] [address], [place], [address], [place]. tel:[phone] Referring Provider: Hector Merrill, [facility] [address], [place], [address]. tel:[phone] [facility] , [address], [place], [address], [place] tel:[phone] [facility] , No Information 4 Yan Young. [facility] [address], [place], [address], [place]. tel:[phone] Referring Provider: Hector Merrill, [facility] [address], [place], [address]. tel:[phone] [facility] , [address], [place], [address], [place] tel:[phone] [facility] , No Information 4 Yan Young. [facility] [address], [place], [address], [place]. tel:[phone] Referring Provider: Hector Merrill, [facility] [address], [place], [address]. tel: [phone] [facility] , [address], [place], [address], [place] [phone] [facility] , Rheumatoid Arthritis 4 Yan Young. [facility] [address], [place], [address], [place]. tel:[phone] Referring Provider: Hector Merrill, [facility] [address], [place], [address]. tel:[phone] [facility] , [address], [place], [address], [place] tel:[phone] [facility] , Rheumatoid Arthritis 4 Yan Young. [facility] [address], [place], [address], [place]. tel:[phone] Referring Provider: Hector Merrill, [facility] [address], [place], [address]. tel:[phone] Office/Outpa tient Visit, Est [facility] , [address], [place], [address], [place] tel:[phone] [facility] , Rheumatoid Arthritis (chief complaint)[facility] health (chief complaint) Rheumatoid ArthritisThe rapeutic Drug MonitoringSp ecial screening for osteoporosis 4 Yan Young. [facility] [address], [place], [address], [place]. tel:[phone] Referring Provider: Hector Merrill, [facility] [address], [place], [address]. tel:[phone] [facility] , [address], [place], [address], [place] tel:[phone] [facility] , Rheumatoid Arthritis 4 Yan Young. [facility] [address], [place], [address], [place]. tel:[phone] Referring Provider: Hector Merrill, [facility] [address], [place], [address]. tel:[phone] [facility] , [address], [place], [address], [place] tel:[phone] [facility] , Rheumatoid Arthritis 4 Yan Young. [facility] [address], [place], [address], [place]. tel:[phone] [facility] , [address], [place], [address], [place] tel:[phone] [facility] , Rheumatoid Arthritis 4 Gordon Kathleen. [facility] [address], [place], [address], [place]. tel:[phone] Referring Provider: Hever Cat, [facility] [address], [place], [address]. tel:[phone] [facility] , [address], [place], [address], [place] tel:[phone] [facility] , Rheumatoid Arthritis 4 Yan Young. [facility] [address], [place], [address], [place]. tel:[phone] [facility] , [address], [place], [address], [place] tel:[phone] [facility] , Rheumatoid Arthritis 4 Gordon Kathleen. [facility] [address], [place], [address], [place]. tel:[phone] Referring Provider: Hever Cat, [facility] [address], [place], [address]. tel:[phone] [facility] , [address], [place], [address], [place] tel:[phone] [facility] , Rheumatoid Arthritis 4 Yan Young. [facility] [address], [place], [address], [place]. tel:[phone] Office/Outpa tient Visit, Est [facility] , [address], [place], [address], [place] tel:[phone] [facility] , Rheumatoid Arthritis (chief complaint)He alth counseling (chief complaint) Rheumatoid ArthritisThe rapeutic Drug MonitoringOt her specified counseling 4 Yan Young. [facility] [address], [place], [address], [place]. tel:[phone] Referring Provider: Hector Merrill, [facility] [address], [place], [address]. tel:[phone] [facility] , [address], [place], [address], [place] tel:[phone] [facility] , Rheumatoid Arthritis 4 Candie Bran. [facility] [address], [place], [address], [place]. tel:[phone] Referring Provider: Yina Gibbons, [facility] [address], [place], [address]. tel:[phone] [facility] , [address], [place], [address], [place] tel:[phone] [facility] , Rheumatoid Arthritis 4 Yan Young. [facility] [address], [place], [address], [place]. tel:[phone] [facility] , [address], [place], [address], [place] tel:[phone] [facility] , Rheumatoid Arthritis 3 Yan Young. [facility] [address], [place], [address], [place]. tel:[phone] Referring Provider: Hector Merrill, [facility] [address], [place], [address]. tel:[phone] [facility] , [address], [place], [address], [place] tel:[phone] [facility] , No Information 3 Yan Young. [facility] [address], [place], [address], [place]. tel:[phone] Referring Provider: Hector Merrill, [facility] [address], [place], [address]. tel:[phone] [facility] , [address], [place], [address], [place] [phone] [facility] , Rheumatoid Arthritis 3 Yan Young. [facility] [address], [place], [address], [place]. tel:[phone] Office/Outpa tient Visit, Est [facility] , [address], [place], [address], [place] tel:[phone] [facility] , Rheumatoid Arthritis (chief complaint) Rheumatoid ArthritisThe rapeutic Drug Monitoring 3 Yan Young. [facility] [address], [place], [address], [place]. tel:[phone] Referring Provider: Hector Merrill, [facility] [address], [place], [address]. tel:[phone] [facility] , [address], [place], [address], [place] tel:[phone] [facility] , Rheumatoid Arthritis 3 Gordon Kathleen. [facility] [address], [place], [address], [place]. tel:[phone] Referring Provider: Hever Cat, [facility] [address], [place], [address]. tel:[phone] [facility] , [address], [place], [address], [place] tel:[phone] [facility] , Rheumatoid Arthritis 3 Yan Young. [facility] [address], [place], [address], [place]. tel:[phone] Referring Provider: Hector Merrill, [facility] [address], [place], [address]. tel:[phone] [facility] , [address], [place], [address], [place] tel:[phone] [facility] , Rheumatoid Arthritis 3 Yan Young. [facility] [address], [place], [address], [place]. tel:[phone] Office/Outpa tient Visit, Est [facility] , [address], [place], [address], [place] tel:[phone] [facility] , Rheumatoid Arthritis (chief complaint) Rheumatoid ArthritisThe rapeutic Drug Monitoring 3 Yan Yougn. [facility] [address], [place], [address], [place]. tel:[phone] Referring Provider: Hector Merrill, [facility] [address], [place], [address]. tel:[phone] Office/Outpa tient Visit, Est [facility] , [address], [place], [address], [place] tel:[phone] [facility] , Rheumatoid Arthritis (chief complaint)Ce llulitis (chief complaint) Rheumatoid ArthritisCel lulitis and abscess of upper arm and forearmThera peutic Drug Monitoring 3 Yan Young. [facility] [address], [place], [address], [place]. tel:[phone] Referring Provider: Hector Merrill, [facility] [address], [place], [address]. tel:[phone] Office/Outpa tient Visit, Est [facility] , [address], [place], [address], [place] tel:[phone] [facility] , Rheumatoid Arthritis (chief complaint) Rheumatoid Arthritis 3 Yan Young. [facility] [address], [place], [address], [place]. tel:[phone] Referring Provider: Hector Merrill, [facility] [address], [place], [address]. tel:[phone] [facility] , [address], [place], [address], [place] tel:[phone] [facility] , No Information Nov2 0-201 2 Yan Young. [facility] [address], [place], [address], [place]. tel:[phone] Referring Provider: Hector Merrill, [facility] [address], [place], [address]. tel:[phone] [facility] , [address], [place], [address], [place] tel:[phone] [facility] , No Information Nov0 6201 2 Yan Young. [facility] [address], [place], [address], [place]. tel:[phone] Referring Provider: Hector Merrill, [facility] [address], [place], [address]. tel:[phone] [facility] , [address], [place], [address], [place] tel:[phone] [facility] , Rheumatoid Arthritis 1201 2 Yan Young. [facility] [address], [place], [address], [place]. tel:[phone] Office/Outpa tient Visit, Est [facility] , [address], [place], [address], [place] tel:[phone] [facility] , Rheumatoid Arthritis (chief complaint) Rheumatoid Arthritis 2 Yan Lubin [facility] [address], [place], [address], [place]. tel:[phone] Referring Provider: Hector Merrill, [facility] [address], [place], [address]. tel:[phone] Office/Outpa tient Visit, Est [facility] , [address], [place], [address], [place] tel:[phone] [facility] , Rheumatoid Arthritis (chief complaint)Ce rvical radiculopath y (chief complaint) Rheumatoid ArthritisInt ervertebral disc disorder with myelopathy, cervical region 2 Yan Lubin [facility] [address], [place], [address], [place]. tel:[phone] Referring Provider: Adam Merrill, [address], [address]. tel:[phone] Family History Family Member Type Diagnosis Age At Onset No Information Payers Payer name Insurance type Covered alliance party ID Authoriza tion(s) [employer] Medicare Plans CI [id number] [facility] CI [id number] Social History Type Description Quantity Date Captured Comments Sex Male Smoking Status No Information Chief Complaint And Reason For Visit No Information Reason For Referral Reason For Referral No Information Plan Of Treatment Date Type Action Status Goal Tobacco cessation counseling completed Goal Tobacco cessation counseling completed Goal Tobacco cessation counseling completed Goal Tobacco cessation counseling completed Goal Tobacco cessation counseling completed Goal Tobacco cessation counseling completed Goal Tobacco cessation counseling completed Goal Tobacco cessation counseling completed Goal Tobacco cessation counseling completed Goal Tobacco cessation counseling completed Referral Ordered: X-Ray Exam Of Foot 2v ordered Referral Ordered: XRay Exam Of Hand 2v ordered Appointment [facility] BOOKED Future Order: Radiology Order Hall nd X-ray; Complete (3+ views) ([address]), Ordered on: Ordered History Of Present Illness Encounter Date Complaint History Of Prese nt Illness Rheumatoid arthritis Rheumatoid arthritis Functional Status Date Functional Assessmen t No Information Instructions Date Instruction Additional Infor mation No Information Assessments Type Assessment Date No Information Patient Care Teams Name Effective Dates (start - stop) Status Members No Information
--- OUTSIDE RECORDS SUMMARY | 2024-06-09 08:42 | XMS_ITS | Clinical Summary ---
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 For routine questions regarding patient records, call [phone] during business hours, M-F 8:00 AM - 5:00 PM Central Time. Record requests for emergency care only can be directed to [phone] at any time.[facility] Social History Tobacco Use Types Packs/Day Years Used Date Smoking Tobacco: Never Assessed Nutrition Answer Date Recorded Nutrition: EVOO Fat Source Unknown 11/19 Nutrition: Servings of Fruits/Vegetables per Day Not on file 11/20/2023 Dental Answer Date Recorded Dental: Regular Dentist Unknown 11/20/19 Sex and Gender Information Value Date Recorded Sex Assigned at Not on file Legal Sex Male 11:39 AM [employer] Gender Identity Not on file Sexual Orientation Not on file Plan of Treatment Health Maintenance Due Date Last Done Comments CT Colonography 1973 Cologuard 1973 Colonoscopy 1973 Colorectal Cancer Screening 1973 FIT 1973 HIV Screening 1973 Hepatitis C Screening 1973 COVID-19 Vaccine (#1) 1978 Pneumococcal vaccine (0-64 y ears) (1 of 2 - PCV) 1979 Hepatitis B Vaccines (1 of 3 - 19+ 3-dose series) 02/13/1992 Zoster Vaccines (1 of 2) 02/13/1992 Fasting Glucose for Diabetes Screening 05/16/2021 Depression Screening (Annual PHQ-2) 08/26/2023 Lipid (Cholesterol) Screening 01/23/2024 01/22/2019 Influenza Vaccine (#1) 2024 06/12/2013, 2009 DTaP,Tdap,and Td Vaccines (2 - Td or Tdap) 03/11/2025 03/11/2015 Insurance [facility] [address] [id number]
--- OUTSIDE RECORDS SUMMARY | 2024-06-09 08:42 | XMS_ITS ---
Author Organization [facility] Address [address] [place] [address] Care Team Providers Care Manager Hi Name Role Phone Unavailable Unavailable Unavailable Surgery Details Not on file Complications Check Surgery Details section. Procedure Estimated Blood Loss Check Surgery Details section. Procedure Findings Check Surgery Details section. Procedure Specimens Taken Check Surgery Details section.
--- OUTSIDE RECORDS SUMMARY | 2024-06-09 08:43 | XMS_ITS | Clinical Summary ---
Author Organization [employer] Address [place], [place] [address] Care Team Providers Care Soil Specialist Name Role Phone Nola Elizalde MD Primary Care Provider Allergies No known active allergies Medications Medication Sig Dispensed Refills Start Date End Date Status predniSONE (DELTASONE) 10 mg tabletIndications:Rhe umatoid arthritis, juvenile (HC) Take 1 tablet by mouth 4 times daily if needed for Other (Specify). 0 01/22/2019 Active acetaminophen (TYLENOL) 325 mg tablet Take 325 mg by mouth every 4 hours if needed for Pain. 03/17/2019 Active Rinvoq 15 mg tablet Take 15 mg by mouth once daily. 04/13/2021 Active trimethoprim-sulfamet hoxazole, 160-800 mg, (BACTRIM DS, SEPTRA DS) tab Take 1 Tablet by mouth every Saturday, Saturday and Saturday. Active methotrexate (RHEUMATREX) 2.5 mg tablet Take 8 Tablets by mouth every Saturday. Active Metal Fabricating Inspector 28Indications:S/P cervical spinal fusion For home use. 1 Each 02/22/2024 Active lisinopriL (PRINIVIL; ZESTRIL) 20 mg tabletIndications:HTN (hypertension) Take 1 Tablet (20 mg) by mouth once daily. 90 Tablet 3 03/25/2024 Active methocarbamoL (ROBAXIN) 750 mg tabletIndications:S/P lumbar microdiscectomy Take 1 Tablet (750 mg) by mouth every 6 hours if needed for Muscle Spasm. 20 Tablet 05/19/2024 Active methocarbamoL (ROBAXIN) 750 mg tabletIndications:S/P lumbar microdiscectomy Take 1 Tablet (750 mg) by mouth every 6 hours if needed for Muscle Spasm. 20 Tablet 04/21/2024 Discontinue d(Reorder (E-cancel not sent)) Active Problems Problem Noted Date Diagnosed Date Rheumatoid arthritis with rh eumatoid factor of multiple sites without organ or systems involvement 02/20/2024 Overview (02/20/2024): Noted by NIKOLAI Antoine DO last documented on [id number] Noted by NIKOLAI Antoine DO last documented on [id number] Adjustment disorder with depressed mood 08/07/20 19 Spinal stenosis of lumbar re gion with neurogenic claudication 10/01/2018 right elbow s/p ulnar nerve decompression and transposition on 05/19/2018 by Rad Latif MD 05/27/2018 Cubital tunnel syndrome on right 05/06/2018 Closed displaced fracture of lateral end of righ t clavicle 05/02/2018 HNP (herniated nucleus pulposus), cervical 03/16 Overview (03/16/2015): C 5-6 Cervical radicular pain 03/11/2015 Nicotine dependence 12/24/2014 Rheumatoid arthritis, juvenile Overview (01/05/2011): 10 years. Status post decompression of ulnar nerve at elbo w Resolved Problems Problem Noted Date Diagnosed Date Resolved Date Cellulitis 02/20/2024 02/20/2024 Rheumatoid arthritis with rh eumatoid factor of multiple sites without organ or systems involvement 02/20/2024 02/20/2024 Overview (02/20/2024): Noted by NIKOLAI Antoine DO last documented on [id number] Encounters Date Type Department Care Team Description 05/19/2024 12:00 PM CDT Office Visit [facility] [address] [place] [address] Vi Puentes NP Post-op (Clinic Appt S/p 02-21-24 Dr. Dave C3-4 anterior cervical discectomy and fusion; RIGHT L4-5 MICRODISCECTOMY; L4-5 SYNOVIAL CYST RESECTION, C4-5 PLATE REMOVAL. Xrays prior @ 11:30 AM ANW.) 05/19/2024 11:06 AM CDT - 05/19/2024 11:59 PM CDT Hospital Encounter [facility] [address] [place] [address] Vi Puentes NP S/P cervical spinal fusion 05/19/2024 Travel 05/07/2024 8:45 AM CDT - 05/07/2024 11:59 PM CDT Hospital Encounter [facility] [address] [address] Vi Puentes NP Guildner, Ryan, PTA 05/07/2024 Travel 05/04/[address] [address] Noal Elizalde MD Questions 04/30/2024 8:22 AM CDT - 04/30/2024 11:59 PM CDT Hospital Encounter [facility] [address] [address] Vi Puentes NP Bailey, Lisa, PT S/P cervical spinal fusion 04/30/2024 Travel 04/21/2024 Refill [facility] [address] [phone] Josiah Dave MD Refill Request 03/26/2024 12:00 PM CDT Office Visit [facility] [address] [address] Vi Puentes NP Post-op (Follow up with Cervical x-ray @ 11:30 AM /02-21-24 Dr. Dave C3-4 anterior cervical discectomy and fusion; RIGHT L4-5 MICRODISCECTOMY; L4-5 SYNOVIAL CYST RESECTION, C4-5 PLATE REMOVAL ) 03/26/2024 11:22 AM CDT - 03/26/2024 11:59 PM CDT Hospital Encounter [facility] [address] [place] [address] Vi Puentes NP S/P cervical spinal fusion 03/26/2024 Telephone [facility] [address] [place] [address] Nola Elizalde MD Results 03/25/2024 10:00 AM CDT Nurse/Clinic Staff Only [facility] [address] [place] [address] Blood Pressure (110/69) 03/25/2024 9:45 AM CDT Orders Only [facility] [address] [place] [address] Lab, [facility] 03/25/2024 Refill [facility] [address] [facility] [place] [address] Nola Elizalde MD Refill Request (lisinopril) 03/25/2024 Travel from Last 3 Months Immunizations Name Administration Dates Next Due Influenza, IIV3 (Age 6-35 mos) 05/19/2010 Influenza, IIV3 (Age >=3 years) 06/12/2013,05/19 Tdap 03/11/2015 Family History Medical History Relation Name Comments Cancer Father skin Diabetes Father Cancer-breast Mother Cancer-breast Sister BRCA Anesthesia Malignant Hyperthermia No Family History Anesthesia Problem No Family History Blood Disease No Family History Relation Name Status Comments Father Mother Sister Social History Tobacco Use Types Packs/Day Years Used Date Smoking Tobacco: Every Day Cigarettes 0.5 44.3 Started: 02/11/1980 Smokeless Tobacco: Never Tobacco Cessation:Ready to Q uit: Not Asked; Counseling Given: Not Answered Alcohol Use Standard Drinks/Week Comments Yes 0 (1 standard drink = 0.6 oz pur e alcohol) rare 6 x a years PHQ-2 Answer Date Recorded PHQ-2 Score 2 09/11/2019 Social Connections Answer Date Recorded Frequency of Communication with Friends and Fami ly Not on file 12/27/2023 Financial Resource Strain Answer Date R ecorded Difficulty of Paying Living Expenses Not on file 08/26/2021 Difficulty of Paying Living Expenses Not on file 08/26/2021 Sex and Gender Information Value Date Recorded Sex Assigned at Not on file Gender Identity Not on file Sexual Orientation Not on file Obstetrics History Last Filed Vital Signs Vital Sign Reading Time Taken Comments Blood Pressure 128/81 05/19/2024 11:27 AM CDT Pulse 93 05/19/2024 11:27 AM CDT Temperature 36.6 ??C (97.9 ??F) 05/19/2024 11:27 AM C DT Respiratory Rate 18 05/19/2024 11:27 AM CDT Oxygen Saturation 100% 05/19/2024 11:27 AM CDT Inhaled Oxygen Concentration - - Weight 75.1 kg (165 lb 9.6 oz) 03/04/2024 3:15 P M CDT Height 182.9 cm (6') 02/21/2024 9:06 AM CDT Body Mass Index 22.46 02/21/2024 9:06 AM CDT Plan of Treatment Scheduled Procedures Name Priority Associated Diagnoses Date/Ti me SURGICAL PROCEDURE (TYPE PROCEDURE DESCRIPTION BELOW) Class D Urgent Lumbar disc herniation Synovial cyst of lumbar facet joint Health Maintenance Due Date Last Done Comments COVID-19 vaccine series (#1) 1978 Pneumococcal series for age 6-64 (1 of 2 - PCV) 1979 Zoster (shingles) series for age 50+ (1 of 2) 02/13/1992 Colonoscopy through age 75 2018 Depression screening for age 12+ 09/28/2020 09/28/2019, 09/23/2019, 09/09/2019, Additional history exists Low Dose CT (for lung CA) ag e 50-80 2023 Influenza for age 50-64 04/26/2024 06/12/2013, 05/19 BMI (ht and wt on same day) for age 18+ 12/26/2024 12/27/2023, 06/06/2020, 07/31/2019, Additional history exists Tetanus booster 03/11/2025 03/11/2015, 09/26 (Postponed) Lipids for age 45-75 03/25/2029 03/25/2024, 01/23/20 19 Tdap Completed 03/11/2015 HIV for age 15-65 Completed 03/25/2024 Hepatitis C screening for ag e 18-79 Completed 03/25/2024 Medical Devices Implanted Type Area Medtronics Technician Device Identifier Shelf Expiration Date Model / Serial / Lot Screw 4.0x14mm - [id number] Implanted:Qty: 4 on 01/10/[address] [facility] Spine SOFAMOR DANEK 876-614# / / [id number] k Andrés [id number] [[id number]] Implanted:Qty: 1 on 01/10/[address] [facility] Explanted:at [facility] (Quantity not on file) Spine Medtronic 07/14/[id number]# / [id number] / [id number] Progenix Dbm 0.5cc [[id number]] Implanted:Qty: 1 on 01/10/[address] [facility] Explanted:at [facility] (Quantity not on file) Spine SPINAL GRAFT 06/01/2012 [id number]# / [id number] / Plate Cerv Ant 21mm [place] Vision 976-121 - [id number] Implanted:Qty: 1 on 01/10/[address] [facility] Spine SOFAMOR DANEK 976-121# / / [id number] Spinal Graft Block Andrés [[id number]] Implanted:Qty: 1 on 03/16/2015 by Josiah Dave MD at [facility] Explanted:at [facility] (Quantity not on file) N/A: Spine Medtronic Spine/Ortho 09/08/[id number]# / [id number] / [id number] one Matrix 0.5cc Progenix Putty Dbm [[id number]] Implanted:Qty: 1 on 03/16/2015 by Josiah Dave MD at [facility] Explanted:at [facility] (Quantity not on file) N/A: Spine Medtronic Spine/Ortho 09/28/2016 [id number]# / [id number] / Plate Cerv 1lvl 25mm [place] Vision Elite - [id number] Implanted:Qty: 1 on 03/16/2015 by Josiah Dave MD at [facility] N/A: Spine Medtronic Spine/Ortho [id number]# / / Plate Cerv 1lvl 21mm [place] Vision Elite Ant - [id number] Implanted:Qty: 1 on 02/21/2024 by Josiah Dave MD at [facility] N/A: Spine Medtronic Spine/Ortho [id number] / / Bone Matrix 1cc [place] Plus Paste Dbm - [id number] Implanted:Qty: 1 on 02/21/2024 by Josiah Dave MD at [facility] N/A: Spine Medtronic Spine/Ortho [id number] 01/07/2026 [id number] / [id number] / X Bone [id number] Spinal Graft Block Andrés - [id number] Implanted:Qty: 1 on 02/21/2024 by Josiah Dave MD at [facility] N/A: Spine Medtronic Spine/Ortho [id number] 04/04/2026 [id number] / [id number] / Screw Cerv Ant 4x17mm [place] Translational Va Slf Drill - [id number] Implanted:Qty: 4 on 02/21/2024 by Josiah Dave MD at [facility] N/A: Spine Medtronic Spine/Ortho [id number] / / Procedures Procedure Name Priority Date/Time Associated Diagnosis Comments XR SPINE CERVICAL 3 VIEWS Routine 05/19/2024 11:17 AM CDT S/P cervical spinal fusion XR SPINE CERVICAL 2 VIEWS Routine 03/26/2024 11:31 AM CDT S/P cervical spinal fusion ANTI HCV Routine 03/25/2024 9:47 AM CDT Need for hepatitis C screening test ANTI HIV 1/2 Routine 03/25/2024 9:47 AM CDT Screening for HIV (human immunodeficiency virus) LIPID PANEL W REFLEX MEASURED LDL Routine 03/25/2024 9:47 AM CDT Lipid screening BASIC METABOLIC PANEL Routine 03/25/2024 9:47 AM CDT HTN (hypertension) from Last 3 Months Results * XR SPINE CERVICAL 3 VIEWS (05/19/2024 11:17 AM CDT) Anatomical Region Laterality Modality CERVICAL SPINE Computed Radiogr aphy 05/20/2024 7:29 AM CDT Narrative 05/20/2024 7:29 AM CDT For Patients: ??As a result of the Cures Act, medical imaging exams and procedure reports are released immediately into your electronic medical record. ??You may view this report before your referring provider. ??If you have questions, please contact your health care provider. Indication: Status post cervical spine fusion. Technique: Three view(s) of the cervical spine. Comparison: 03/26/2024. Findings: Field of view: Excludes the cervicothoracic junction. Alignment: There is straightening of the cervical lordosis. Widening the atlanto dens interval on flexion measuring up to 5 mm, which resolves in extension and neutral positioning. Otherwise, there is limited range of motion in the cervical spine during dynamic evaluation. Vertebral body heights: Maintained. Intervertebral disc spaces: Postoperative changes following C3-4 ACDF. There appears to be interbody grafts at the C4-5 and C5-6 levels as well. No evidence of hardware complication. Intervertebral disc space narrowing in the lower cervical spine. Fracture: Not visualized. Miscellaneous: No prevertebral soft tissue swelling. Impression: 1. Atlantodental widening up to 5 mm during flexion, which resolves in neutral and extended positioning. 2. C3-C4 ACDF with interbody grafts at C4-5 and C5-6. No evidence of hardware complication. Dictated by Ely Kam DO @ May 20 2024 ??7:29AM (Electronically Signed) [email or web address] Procedure Note Ely Kam DO - 05/20/2024 For Patients: As a result of the Cures Act, medical imagingexams and procedure reports are released immediately into your electronicmedical record. You may view this report before your referring provider.If you have questions, please contact your health care provider. Indication: Status post cervical spine fusion. Technique: Three view(s) of the cervical spine. Comparison: 03/26/2024. Findings: Field of view: Excludes the cervicothoracic junction. Alignment: There is straightening of the cervical lordosis. Widening theatlanto dens interval on flexion measuring up to 5 mm, which resolves inextension and neutral positioning. Otherwise, there is limited range ofmotion in the cervical spine during dynamic evaluation. Vertebral body heights: Maintained. Intervertebral disc spaces: Postoperative changes following C3-4 ACDF.There appears to be interbody grafts at the C4-5 and C5-6 levels as well.No evidence of hardware complication. Intervertebral disc space narrowingin the lower cervical spine. Fracture: Not visualized. Miscellaneous: No prevertebral soft tissue swelling. Impression: 1. Atlantodental widening up to 5 mm during flexion, which resolves inneutral and extended positioning. 2. C3-C4 ACDF with interbody grafts at C4-5 and C5-6. No evidence ofhardware complication. Dictated by Ely Kam DO @ May 20 2024 7:29AM (Electronically Signed) [email or web address]entes SURGICAL INSTRUMENTS INSPECTOR GENERAL IMAGIN G * XR SPINE CERVICAL 2 VIEWS (03/26/2024 11:31 AM CDT) Anatomical Region Laterality Modality CERVICAL SPINE Digital Radiogra phy Narrative 03/26/2024 4:20 PM CDT Indication [Cervical fusion.] Technique [Multiple radiographic views of the cervical spine.] Comparison [Cervical spine radiographs from 06/12/2015.] Findings Postsurgical changes of ACDF spanning C3 through C6. No complications. Vi Puentes SURGICAL INSTRUMENTS INSPECTOR GENERAL IMAGIN G * (ABNORMAL) LIPID PANEL W REFLEX MEASURED LDL (03/25/2024 9:47 AM CDT) CHOLESTEROL,TOTAL 179 100 - 199 mg/dL 03/25/2024 6:19 PM CDT [email or web address] Comment: Cholesterol, Total Reference Ranges Desirable <200 mg/dL Borderline 200-239 mg/dL High >=240 mg/dL TRIGLYCERIDES 203(H) <150 mg/dL 03/25/2024 6:19 PM CDT [facility] HDL CHOLESTEROL 35(L) >40 mg/dL 6:19 PM CDT [facility] NON-HDL CHOLESTEROL 144 <145 mg/dl 03/25/2024 6:19 PM CDT [facility] CHOL/HDL RATIO 5.11(H) <4.50 03/25/2024 6:19 PM CDT [facility] LDL CHOLESTEROL 103 <=130 mg/dL 03/25/2024 6:19 PM CDT [facility] VLDL CHOLESTEROL 41(H) <=30 mg/dL 03/25/2024 6:19 PM CDT [facility] PROVIDER ORDERED STATUS RANDOM 03/25/2024 6:19 PM CDT [facility] Blood BLOOD SPECIMEN / Unknown Venipuncture / Unknown 03/25/2024 9:47 AM CDT 03/25/2024 9:47 AM CDT Nola Elizalde MD CHEMISTRY Performing Organization Address City/[facility]/ZIP Co de Phone Number [facility] [address] [place] [address], * ANTI HCV (03/25/2024 9:47 AM CDT) Pathologist [facility] HEPATITIS C ANTIBODY Non-Reacti ve Non-React sagar 03/25/2024 6:05 PM CDT [facility] Comment:Please note, per www .CDC.gov: If a patient is known to be at high risk of HCV infection, or is symptomatic, and the physician's suspicion of HCV infection is high, HCV RNA testing is often employed and is of diagnostic value, even after an initial negative anti-HCV test result. Blood BLOOD SPECIMEN / Unknown Venipuncture / Unknown 03/25/2024 9:47 AM CDT 03/25/2024 9:47 AM CDT Nola Elizalde MD SEND OUTS [facility] [address] [place] [address], * ANTI HIV 1/2 [79487.0] (03/25/2024 9:47 AM CDT) HIV-1/HIV-2 SCREEN Non-Reacti ve Non-Reacti ve 03/25/2024 6:07 PM CDT [facility] Comment:HIV-1 p24 and HIV-1/ HIV-2 Ab Not Detected. Blood BLOOD SPECIMEN / Unknown Venipuncture / Unknown 03/25/2024 9:47 AM CDT 03/25/2024 9:47 AM CDT Nola Elizalde MD [facility] [address] [place] [address], * (ABNORMAL) BASIC METABOLIC PANEL (03/25/2024 9:47 AM CDT) Pathologist [facility] SODIUM 138 136 - 145 mmol/L 03/25/2024 6:19 PM CDT [facility] POTASSIUM 4.7 3.5 - 5.1 mmol/L 03/25/2024 6:19 PM CDT [facility] CHLORIDE 102 98 - 107 mmol/L 03/25/2024 6:19 PM CDT [facility] CO2,TOTAL 24 22 - 29 mmol/L 03/25/2024 6:19 PM CDT [facility] ANION GAP 12 5 - 18 03/25/2024 6:19 PM CDT [facility] GLUCOSE 107(H) 70 - 99 mg/dL 03/25/2024 6:19 PM CDT [facility] CALCIUM 9.3 8.6 - 10.0 mg/dL 03/25/2024 6:19 PM CDT [facility] BUN 17 6 - 20 mg/dL 03/25/2024 6:19 PM T [facility] CREATININE 0.85 0.70 - 1.20 mg/dL 03/25/2024 6:19 PM CDT [facility] BUN/CREAT RATIO 20 10 - 20 6:19 PM CDT [facility] eGFR >90 >90 mL/min/1.7 3m2 03/25/2024 6:19 PM CDT [facility] Comment:As of 2021, eG FR is calculated by the CKD-EPI creatinine equation without race adjustment. ??eGFR can be influenced by muscle mass, exercise, and diet. ??The reported eGFR is an estimation only and is only applicable if the renal function is stable. Blood BLOOD SPECIMEN / Unknown Venipuncture / Unknown 03/25/2024 9:47 AM CDT 03/25/2024 9:47 AM CDT Nola Elizalde MD CHEMISTRY [facility] [address] [place] [id number], from Last 3 Months Advance Directives * Full Code (Latest Code Status on File) Date Activated Date Inactivated Comments 02/21/2024 8:18 AM 02/22/2024 7:08 PM Question Answer Comments Code Status Discussion: Per Existing Order * Full Code Date Activated Date Inactivated Comments 01/07/2024 7:39 AM 01/07/2024 2:29 PM Question Answer Comments Code Status Discussion: Unable to Assess Preferences, Provider to review later * Full Code Date Activated Date Inactivated Comments 10/03/2018 10:21 AM 10/03/2018 8:39 PM * Full Code Date Activated Date Inactivated Comments 05/19/2018 7:02 AM 05/19/2018 1:56 PM Question Answer Comments Code Status Discussion: Discussed * Full Code Date Activated Date Inactivated Comments 05/19/2018 7:02 AM 05/19/2018 7:02 AM Question Answer Comments Code Status Discussion: Discussed Care Teams Soil Specialist Relationship Specialty Start Date End Date Nola Elizalde MD [address] [place] [address] PCP - General Family Practice 02/17/15
--- NOTE | 2024-06-09 09:00 | CRLHL7_ITS ---
For Patients: As a result of the Century Cures Act, medical imaging exams and procedure reports are released immediately into your electronic medical record. You may view this report before your referring provider. If you have questions, please contact your health care provider. INDICATION: Malignant neoplasm testis TECHNIQUE: CT chest, abdomen and pelvis acquired with 93 mL Isovue 370 IV contrast. COMPARISON: 12/17/[address] FINDINGS: CHEST: Cardiovascular structures: Heart size is normal. Thoracic aorta and main pulmonary artery are normal in caliber. Mediastinum and kate: No mass or adenopathy. Benign calcified lymph nodes. Lungs and pleura: Benign calcified granulomas in the left lung. Mild emphysema and bronchial wall thickening. A solid nodule in the lateral right upper lobe on image 57 of series 3 measures 5 mm, not significantly changed when accounting for differences in slice selection. A 7 mm ground-glass nodule in the left upper lobe on image 59 is unchanged in retrospect. No new nodules. Chest wall and axilla: No mass or adenopathy. Bilateral gynecomastia. Bones: New healing fracture of the manubrium best seen on the sagittal images. Chronic bilateral rib fractures are similar. ABDOMEN AND PELVIS: Liver: Unremarkable. Gallbladder and bile ducts: Unremarkable. Pancreas: Unremarkable. Spleen: Unremarkable. Adrenal glands: Unremarkable. Kidneys: Bilateral nephrolithiasis. No hydronephrosis. GI tract: Colonic diverticulosis. No diverticulitis. Vascular structures: Aortoiliac atherosclerosis. Lymph nodes: No adenopathy. Miscellaneous: Unremarkable. No free air or significant free fluid. Pelvic Organs: Right orchiectomy. Bones: No suspicious bone lesions. Advanced lumbar spondylosis. Chronic L2 compression fracture.. IMPRESSION: 1. Interval right orchiectomy. 2. Healing fracture of the manubrium is new from the prior study. Is unclear whether this is pathologic or posttraumatic. Correlation with any history of trauma recommended. No suspicious bone lesions. 3. Bilateral nephrolithiasis. 4. Stable 5 mm solid right upper lobe and 7 mm ground-glass left upper lobe pulmonary nodules. Recommend attention on follow-up exams. Please note that all CT scans at this facility use dose modulation, iterative reconstruction, and/or weight-based dosing when appropriate to reduce radiation dose to as low as reasonably achievable. Dictated by Rhett Osei MD @ 06/10/2024 1:09:23 PM (Electronically Signed)
[2024-06-09 09:54] LABS: Basophils Percent Auto 0.2 % (0.0-3.0); Eosinophils Percent Auto 0.4 % (0.0-7.0); Hematocrit 40.9 % (37.0-53.0); Hemoglobin* 12.7 gm/dL (13.5-17.5); Immature Granulocytes Pct Auto 0.7 %; Lymphocytes Percent Auto 9.9 % (20-44); Mean Corpuscular HGB Conc 31 gm/dL (32-36); Mean Corpuscular Hemoglobin 30 pg (26-34); Mean Corpuscular Volume 97 fL (80-100); Monocytes Percent Auto 6.5 % (0.0-11.0); Neutrophils Percent Auto 82.3 % (42.0-72.0); Platelet Count* 479 K/uL (140-440); RDW Coefficient of Variation % 16.2 % (11.5-15.5); Red Blood Count 4.23 m/uL (4.30-5.90); White Blood Count* 17.15 K/uL (4.50-11.00)
[2024-06-09 10:08] LABS: Albumin* 4.3 g/dL (3.3-5.0); Slide Review Reflex No
[2024-06-09 10:09] LABS: Chloride* 100 mmol/L (96-114); Potassium* 3.9 mmol/L (3.6-5.1); Sodium* 136 mmol/L (135-149)
[2024-06-09 10:11] LABS: Anion Gap 9 mEq/L (7-15); Aspartate Amino Transferase* 24 U/L (12-35); Bilirubin Total* 0.3 mg/dL (0.1-1.5); Carbon Dioxide* 27 mmol/L (20-32); Creatinine* 0.7 mg/dL (0.5-1.5); Estimated Glomerular Filt Rate 112 ml/min; Total Protein* 6.9 g/dL (6.0-8.3)
[2024-06-09 10:12] LABS: Alanine Aminotransferase* 22 U/L (4-50); Alkaline Phosphatase* 72 U/L (40-150); Blood Urea Nitrogen* 13 mg/dL (7-30); Calcium* 9.4 mg/dL (8.4-10.6); Glucose* 99 mg/dL (60-115); Lactate Dehydrogenase* 305 U/L (120-246)
[2024-06-10 21:15] LABS: Alpha Fetoprotein Tumor Marker 3 ng/mL (0-9)
[2024-06-11 14:51] LABS: Beta-hCG Quant Tumor Marker <1 IU/L (0-3)
== END 2024-06-09 08:39 | disposition home or self-care (01) ==
LOC: CT 08:39
PROVIDERS: PCP Family Medicine; Visit Provider Internal Medicine
DX: C62.11 Malignant neoplasm of descended right testis (principal); M84.48XD Pathological fracture, other site, subsequent encounter for fracture with routine healing; N20.0 Calculus of kidney; R91.8 Other nonspecific abnormal finding of lung field; M06.09 Rheumatoid arthritis without rheumatoid factor, multiple sites; D72.829 Elevated white blood cell count, unspecified
CPT/HCPCS: 36415; 71260; 74177; 80053; 82105; 83615; 84704; 85025; Q9967